=== PATIENT | male | born 1970 | race Caucasian/White ===

== ENCOUNTER 2016-11-08 21:08 | Emergency (ER) | payer BC, MEDICAID ==
[~2016-11-08] VITALS: Ht 162.6 cm; Wt 63.5 kg
--- NOTE | 2016-11-08 21:28 | NUR ---
"FOUND AT [facility]"; IN PERSONAL WC. FSBS 110" DENIES ANY SYMPTOMS AT THIS TIME. PLACED ON A MONITOR. VSS. AWAITING MD ORDER
--- NOTE | 2016-11-08 23:44 | NUR ---
GAVE REPORT TO TIERRA FOR [facility]
--- NOTE | 2016-11-09 00:28 | NUR ---
RESTING WITH NO S/S OF DISTRESS. RESP EVEN AND UNLABORED. STILL ON MONITOR.
--- NOTE | 2016-11-09 01:07 | NUR ---
NO S/S OF DISTRESS NOTED. RESP EVEN AND UNLABORED. STILL ON MONITOR.
--- NOTE | 2016-11-09 02:03 | NUR ---
NO NEW CHANGES FROM PREVIOUS ASSESSMENT. RESP EVEN AND UNLABORED. STILL MONITORED.
--- NOTE | 2016-11-09 03:35 | NUR ---
RESTING QUIETLY. APPEARS COMFORTABLE. NAD NOTED.
--- NOTE | 2016-11-09 04:08 | NUR ---
REASSESSED AND APPEARS IN NO DISTRESS AT THIS TIME.
[2016-11-09 05:10] VITALS: BP 102/53
--- NOTE | 2016-11-09 05:10 | NUR ---
AWAKE; DENIES ANY SX'S AT THSI TIME. RESP EVEN AND UNLABORED.
--- NOTE | 2016-11-09 05:34 | NUR ---
Patient discharged to home in stable condition. Written and verbal after care instructions given. Patient verbalizes understanding of instruction.
== END 2016-11-09 05:35 | disposition home or self-care (01) ==
LOC: ER 21:09
DX: F10.129 Alcohol abuse with intoxication, unspecified (principal); R56.9 Unspecified convulsions; Z91.048 Other nonmedicinal substance allergy status
CPT/HCPCS: 82962-TC; A4606; Z7610

== ENCOUNTER 2017-01-12 10:54 | Inpatient (IN) | payer MEDICAID ==
[~2017-01-12] VITALS: Ht 188 cm; Wt 54.9 kg
[2017-01-12] MEDS ORDERED: LORAZEPAM INJ 2 MG/ML VIAL ONE (11:27)
[2017-01-12] MEDS ORDERED: LORAZEPAM INJ 2 MG/ML VIAL IVP ONE (11:30)
[2017-01-12] MEDS ORDERED: LORAZEPAM INJ 2 MG/ML VIAL IM ONE (11:30)
[2017-01-12] MEDS ORDERED: IV NS 0.9% 1,000 ML BAG IV ONE (11:30)
[2017-01-12 16:15] LABS: BASOPHILS # (AUTO) 0.1 /CMM (0.0-0.2); BASOPHILS % (AUTO) 1.3 % (0.0-2.0); EOSINOPHILS # (AUTO) 0.3 /CMM (0.0-0.7); EOSINOPHILS % (AUTO) 5.4 % (0.0-6.0); HEMATOCRIT 37 % (39-51); HEMOGLOBIN 12.1 g/dL (13.5-17.5); LYMPHOCYTES # (AUTO) 2.1 /CMM (0.8-4.8); LYMPHOCYTES % (AUTO) 32.8 % (20.0-44.0); MEAN CORPUSCULAR HEMOGLOBIN 32 PG (26.0-33.0); MEAN CORPUSCULAR HGB CONC 33 g/dl (31.0-36.0); MEAN CORPUSCULAR VOLUME 98 fL (80-96); MONOCYTES # (AUTO) 0.6 /CMM (0.1-1.30); MONOCYTES % (AUTO) 10.2 % (2.0-12.0); NEUTROPHILS # (AUTO) 3.2 /CMM (1.8-8.9); NEUTROPHILS % (AUTO) 50.3 % (43.0-81.0); PLATELET COUNT (AUTO) 328 /CMM (150-450); RDW COEFFICIENT OF VARIATION 15.4 (11.5-15.0); RED BLOOD CELL COUNT(AUTO) 3.79 MIL/uL (4.5-6.0); WHITE BLOOD COUNT (AUTO) 6.3 K/uL (4.3-11.0)
[2017-01-12 16:29] LABS: APPEARANCE,URINE Clear (CLEAR); BILIRUBIN,URINE Negative (NEGATIVE); BLOOD, URINE Trace-intact Ery/uL (NEGATIVE); COLOR,URINE Yellow (YELLOW); KETONES,URINE Negative (NEGATIVE); LEUKOCYTE ESTERASE ,URINE Negative (NEGATIVE); NITRITE, URINE Negative (NEGATIVE); PROTEIN,URINE Negative (NEGATIVE); UGLUCOSE Negative (NEGATIVE); UROBILINOGEN,URINE 0.2 EU/dL (0.2)
[2017-01-12 16:35] LABS: RBC,URINE 0-2 /HPF (0-2); WBC,URINE 0-2 /HPF (0-3)
[2017-01-12 16:36] LABS: BACTERIA,URINE Few /HPF (None Seen); SQUAMOUS EPITHELIAL CELL,UR Few /HPF (None Seen)
[2017-01-12 16:48] LABS: CALCIUM, SERUM 8.1 mg/dL (8.5-10.1); CREATININE 0.7 mg/dL (0.6-1.3)
[2017-01-12 16:54] LABS: ALBUMIN 3.5 g/dL (3.4-5.0); BILIRUBIN,DIRECT 0.1 mg/dL (0.0-0.2); BILIRUBIN,TOTAL 0.2 mg/dL (0.2-1.0)
[2017-01-12 16:55] LABS: SALICYLATE 1.1 mg/dL (2.8-20.0)
[2017-01-12 17:50] VITALS: BP 103/61
[2017-01-12 18:00] VITALS: BP 103/61
[2017-01-12] MEDS ORDERED: HYDROCODONE/APAP 5/325MG 1 EACH TABLET PO PRN (18:00)
[2017-01-12] MEDS ORDERED: Z GUARD REMEDY 2 OZ OINT TP PRN (18:00)
[2017-01-12] MEDS ORDERED: MAGNESIUM HYDROXIDE 30 ML UDC PO PRN (18:00)
[2017-01-12] MEDS ORDERED: ACETAMINOPHEN 325 MG TABLET PO PRN (18:00)
[2017-01-12] MEDS ORDERED: ONDANSETRON HCL/PF 4 MG/2 ML VIAL IVP PRN (18:00)
[2017-01-12] MEDS ORDERED: ZOLPIDEM TARTRATE 5 MG TABLET PO PRN (18:00)
[2017-01-12] MEDS ORDERED: MAG HYDROX/AL HYDROX/SIMETH 30 ML UDC PO PRN (18:00)
[2017-01-12] MEDS ORDERED: LORAZEPAM INJ 2 MG/ML VIAL IV PRN (18:30)
[2017-01-12 20:00] VITALS: BP 89/46
[2017-01-12] MEDS ORDERED: LEVETIRACETAM (250 MG) 250 MG TABLET PO ONE (20:24)
[2017-01-12 20:30] VITALS: BP 94/48
[2017-01-12] MEDS: LEVETIRACETAM (250 MG) 250 MG TABLET PO SCH (20:35)
[2017-01-12 21:00] VITALS: BP_SYST 100; BP_SYST 89; BP_DIAS 42; BP_DIAS 46
[2017-01-13 00:13] VITALS: BP 110/66
[2017-01-13 02:00] VITALS: BP 115/66
[2017-01-13] MEDS ORDERED: PANTOPRAZOLE 40 MG TABLET.DR PO SCH (07:30)
[2017-01-13 08:00] VITALS: BP 119/69
[2017-01-13 08:12] LABS: BASOPHILS # (AUTO) 0.1 /CMM (0.0-0.2); BASOPHILS % (AUTO) 0.9 % (0.0-2.0); EOSINOPHILS # (AUTO) 0.2 /CMM (0.0-0.7); EOSINOPHILS % (AUTO) 2.8 % (0.0-6.0); HEMATOCRIT 34 % (39-51); HEMOGLOBIN 11.3 g/dL (13.5-17.5); LYMPHOCYTES # (AUTO) 1.4 /CMM (0.8-4.8); LYMPHOCYTES % (AUTO) 23.1 % (20.0-44.0); MEAN CORPUSCULAR HEMOGLOBIN 33 PG (26.0-33.0); MEAN CORPUSCULAR HGB CONC 34 g/dl (31.0-36.0); MEAN CORPUSCULAR VOLUME 97 fL (80-96); MONOCYTES # (AUTO) 0.7 /CMM (0.1-1.30); MONOCYTES % (AUTO) 11.6 % (2.0-12.0); NEUTROPHILS # (AUTO) 3.8 /CMM (1.8-8.9); NEUTROPHILS % (AUTO) 61.6 % (43.0-81.0); PLATELET COUNT (AUTO) 279 /CMM (150-450); RED BLOOD CELL COUNT(AUTO) 3.47 MIL/uL (4.5-6.0); WHITE BLOOD COUNT (AUTO) 6.1 K/uL (4.3-11.0)
[2017-01-13 08:21] LABS: CALCIUM, SERUM 8.6 mg/dL (8.5-10.1); CREATININE 0.7 mg/dL (0.6-1.3); MAGNESIUM 1.8 mg/dL (1.8-2.4); PHOSPHORUS 2.6 mg/dL (2.5-4.9); POTASSIUM 3.7 mmol/L (3.5-5.1)
[2017-01-13] MEDS: LEVETIRACETAM (250 MG) 250 MG TABLET PO SCH (08:33)
[2017-01-13] MEDS ORDERED: ALLO300T2 PO (09:29)
[2017-01-13] MEDS ORDERED: NILO150C PO (09:29)
[2017-01-13] MEDS ORDERED: TOPI25TA8 PO (09:29)
[2017-01-13] MEDS ORDERED: LORA1TAB82 PO (09:29)
[2017-01-13] MEDS ORDERED: LEVE1000 PO (13:29)
[2017-01-13] MEDS ORDERED: ALLOPURINOL 100 MG TABLET PO ONE (14:30)
[2017-01-13 15:30] VITALS: BP 119/69
== END 2017-01-13 15:30 | disposition home or self-care (01) | DRG 53 ==
LOC: ER 10:55 → MEDSG2 17:28
PROVIDERS: ADMIT Internal Medicine; ATTEND Internal Medicine
DX: G40.909 Epilepsy, unspecified, not intractable, without status epilepticus (principal); I69.351 Hemiplegia and hemiparesis following cerebral infarction affecting right dominant side; Z59.0 Homelessness; F17.200 Nicotine dependence, unspecified, uncomplicated; J44.9 Chronic obstructive pulmonary disease, unspecified; Z91.14 Patient's other noncompliance with medication regimen; F10.10 Alcohol abuse, uncomplicated; Z85.6 Personal history of leukemia
CPT/HCPCS: 36415; 70450-TC; 80048-TC; 80076-TC; 80305; 81000-TC; 83735-TC; 84100-TC; 85025-TC; 87081-TC; A4606; G0480; J2060; Z7610